=== PATIENT | female | born 1930 | race Caucasian/White ===

== ENCOUNTER 2017-02-25 21:44 | Emergency (ER) | payer OTHER, MEDICARE ==
[2017-02-26] MEDS ORDERED: TYLENOL PO ONE (04:00)
[2017-02-26] MEDS ORDERED: FLEXERIL PO ONE (04:00)
[2017-02-26] MEDS ORDERED: TORADOL IM ONE (04:01)
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
[2017-02-26 04:36] VITALS: BP 159/91
== END 2017-02-26 04:35 | disposition home or self-care (01) ==
LOC: ED 21:44
DX: M79.1 Myalgia (principal); E11.9 Type 2 diabetes mellitus without complications; E78.00 Pure hypercholesterolemia, unspecified; V49.9XXA Car occupant (driver) (passenger) injured in unspecified traffic accident, initial encounter; Y93.89 Activity, other specified; Y99.9 Unspecified external cause status; Y92.89 Other specified places as the place of occurrence of the external cause
CPT/HCPCS: 93005; 93010; 96372; 99283; J1885